=== PATIENT | female | born 1950 | race Caucasian/White ===

== ENCOUNTER → 2016-12-28 | Outpatient (CLI) | payer MEDICARE, OTHER, BC | LOC: MW.CHFP 14:10 | PROVIDERS: ATTEND Nurse Practitioner Family | DX: R10.11 Right upper quadrant pain (principal); R25.2 Cramp and spasm | CPT/HCPCS: 36415; 80053; 82150; 83690; 85027; 86677; G0463 ==

== ENCOUNTER → 2017-01-16 | Outpatient (CLI) | payer MEDICARE, OTHER ==
--- NOTE | 2017-01-16 14:07 | NM ---
EXAMINATION: Nuclear medicine hepatobiliary study (HIDA) with cholecystokinin (calculation of gallbl adder ejection fraction for function). HISTORY: Right upper quadrant pain. PROCEDURE: Following intravenous administration of 3.1 mCi of technetium 99m Choletec, dynamic images were ob tained up to one-hour post injection. This is followed by slow intravenous administration of 1.5 mcg of CCK and additional dynamic images were obtained. Gallbladder ejection fraction is calculated. FINDINGS: The initial dynamic images demonstrates clearance of the tracer from the blood pool with the prompt tracer uptake by the liver. By 35 minutes tracer activity is noted in the gallbladder. The post CCK images demonstrates optimal contraction of the gallbladder with ejection fraction of 89 percent (nor mal is equal or more than 35%). Tracer activity is noted in the small intestine following CCK admini stration. IMPRESSION: 1. Patent cystic and common bile ducts. Normal liver function. 2. Normal gallbladder ejection fraction following CCK administration ( 89 %; normal equal or more t nicole 35%).
== END | disposition home or self-care (01) ==
LOC: MW.NM 09:55
PROVIDERS: ATTEND Nurse Practitioner Family
DX: R10.11 Right upper quadrant pain (principal)
CPT/HCPCS: 78227; A9537; J2805

== ENCOUNTER 2022-09-29 12:56 | Emergency (ER) | payer MEDICARE, OTHER ==
[2022-09-29 17:00] VITALS: BP 131/97; PULSE 81
== END 2022-09-29 17:00 | disposition home or self-care (01) ==
LOC: MW.ED 12:56
DX: S09.90XA Unspecified injury of head, initial encounter (principal); Z88.5 Allergy status to narcotic agent; W01.10XA Fall on same level from slipping, tripping and stumbling with subsequent striking against unspecified object, initial encounter
CPT/HCPCS: 70450; 70450-26; 99283